=== PATIENT | female | born 1940 | race Caucasian/White ===

== ENCOUNTER 2022-08-30 12:46 | Inpatient (IN) ==
[2022-08-30] MEDS ORDERED: levETIRAcetam 1000MG IVPREMIX 1,000 MG/100 ML BAG IVPB ONE (12:53)
[2022-08-30] MEDS ORDERED: Iodixanol (CONTRAST) 320 MG/ML 100 ML SDV IV ONE (13:13)
[2022-08-30 13:18] LABS: ABS Basophils 0.1 10^3/uL (0.0-0.1); ABS Eosinophils 0.4 10^3/uL (0.0-0.5); ABS Lymphocytes 1.4 10^3/uL (1.0-4.8); ABS Monocytes 0.8 10^3/uL (0.0-0.9); ABS Neutrophils 6.2 10^3/uL (1.5-7.6); Eosinophil % 4.8 %; Hemoglobin 10.8 g/dL (11.5-14.3); Lymphocyte % 15.4 %; Mean Corpuscular Hemoglobin 31.2 pg (27-33); Mean Corpuscular Hgb Conc 33.9 g/dL (31-36); Mean Corpuscular Volume 92.1 fL (80-97); Mean Platelet Volume 9.3 fL (7.5-11.2); Platelet Count 362 10^3/uL (150-450); Red Blood Count 3.47 10^6/uL (3.63-4.92); Red Cell Distribution Width 14.3 % (12-17); White Blood Count 8.9 10^3/uL (3.8-11.8)
[2022-08-30 13:29] LABS: Activated Partial Thrombo Time 29.2 seconds (26.0-38.0); INR 1.15 (0.88-1.18)
[2022-08-30 14:01] LABS: Albumin 3.1 g/dL (3.2-5.2); Albumin/Globulin Ratio 1.1 (1-3); Calcium 9.3 mg/dL (8.6-10.3); Creatinine, Serum 0.76 mg/dL (0.51-0.95); Globulin 2.8 g/dL (2-4); HDL Cholesterol 53.1 mg/dL; Potassium 3.7 mmol/L (3.5-5.0); Total Bilirubin 0.4 mg/dL (0.2-1.0); Total Protein 5.9 g/dL (6.4-8.9); eGFR CKD-EPI 78.7 (>60)
[2022-08-30 17:34] LABS: Urine Appearance Clear; Urine Bilirubin Negative (Negative); Urine Blood Negative (Negative); Urine Color Yellow; Urine Glucose Negative (Negative); Urine Ketones Negative (Negative); Urine Nitrite Negative (Negative); Urine Protein 2+(100 mg/dL) (Negative); Urine Specific Gravity 1.011 (1.002-1.030); Urine Urobilinogen Negative (Negative)
[2022-08-30 17:44] LABS: Urine Bacteria Absent (Absent); Urine Red Blood Cell 2+(6-10/hpf) (Absent); Urine Squamous Epithelial Cell Present (Absent); Urine White Blood Cell 2+(11-20/hpf) (Absent)
[2022-08-30] MEDS ORDERED: Magnesium Hydroxide LIQ 30 ML UDC FEED TUBE PRN (19:21)
[2022-08-30] MEDS ORDERED: NS 0.45% 1000 ml BAG 1,000 ML IV SCH (20:00)
[2022-08-31 01:35] LABS: Calcium 9.2 mg/dL (8.6-10.3); Potassium 3.5 mmol/L (3.5-5.0)
[2022-08-31 01:41] LABS: Creatinine, Serum 0.62 mg/dL (0.51-0.95); eGFR CKD-EPI 89.4 (>60)
[2022-08-31] MEDS ORDERED: levETIRAcetam 500 MG IVPREMIX 500 MG/100 ML BAG IVPB SCH (02:00)
[2022-08-31] MEDS: levETIRAcetam 500 MG IVPREMIX 500 MG/100 ML BAG IVPB SCH ×2 (02:30→18:48)
[2022-08-31 05:51] LABS: ABS Basophils 0.1 10^3/uL (0.0-0.1); ABS Eosinophils 0.6 10^3/uL (0.0-0.5); ABS Lymphocytes 1.4 10^3/uL (1.0-4.8); ABS Monocytes 0.6 10^3/uL (0.0-0.9); ABS Neutrophils 4.1 10^3/uL (1.5-7.6); ABS Nucleated RBC 0.01 10^3/ul; Eosinophil % 8.6 %; Hematocrit 31.7 % (35-45); Hemoglobin 10.6 g/dL (11.5-14.3); Lymphocyte % 20.2 %; Mean Corpuscular Hemoglobin 30.7 pg (27-33); Mean Corpuscular Hgb Conc 33.4 g/dL (31-36); Mean Platelet Volume 9.6 fL (7.5-11.2); Nucleated Red Blood Cells % 0.2 /100 WBC (0.0-0.4); Platelet Count 324 10^3/uL (150-450); Red Blood Count 3.45 10^6/uL (3.63-4.92); Red Cell Distribution Width 14.3 % (12-17); White Blood Count 6.8 10^3/uL (3.8-11.8)
[2022-08-31 06:08] LABS: ALT 39 U/L (7-52); AST 23 U/L (13-39); Albumin/Globulin Ratio 1.1 (1-3); Alkaline Phosphatase 189 U/L (35-149); Anion Gap 9 mmol/L (2-16); Blood Urea Nitrogen 40 mg/dL (6-24); CO2 Carbon Dioxide 27 mmol/L (22-32); Calcium 9.3 mg/dL (8.6-10.3); Chloride 109 mmol/L (101-111); Creatinine, Serum 0.55 mg/dL (0.51-0.95); Globulin 2.8 g/dL (2-4); Glucose 98 mg/dL (70-100); Magnesium 1.7 mg/dL (1.9-2.7); Potassium 3.4 mmol/L (3.5-5.0); Sodium 145 mmol/L (135-145); Total Protein 5.8 g/dL (6.4-8.9)
[2022-08-31] MEDS ORDERED: Magnesium Sulfate 2 gm BAG 2 GM/50 ML BAG IVPB ONE (07:30)
[2022-08-31] MEDS ORDERED: Letrozole 2.5 MG TAB (NF) PO SCH (09:00)
[2022-08-31] MEDS: KCL 20 MEQ/100 ML IVPREMIX 20 MEQ/100 ML BAG IV SCH ×2 (10:34→19:14)
[2022-08-31] MEDS: CMCS: Letrozole 2.5 MG TAB (NF) PO SCH (10:51)
[2022-08-31 12:27] LABS: Folate > 20.00 ng/mL (5.90-24.80)
[2022-08-31 12:59] LABS: Vitamin B12 515 pg/mL (180-914)
[2022-08-31] MEDS ORDERED: Lidocaine 1% MPF 5 ML VIAL INJ ONE (14:57)
[2022-08-31] MEDS ORDERED: D5LR 1000 ml BAG 1,000 ML IV SCH (17:00)
[2022-08-31] MEDS ORDERED: Magnesium Hydroxide LIQ 30 ML UDC PO PRN (17:20)
[2022-08-31] MEDS ORDERED: Magnesium Hydroxide LIQ 30 ML UDC G TUBE PRN (18:19)
[2022-08-31] MEDS ORDERED: KCL 20 MEQ/100 ML IVPREMIX 20 MEQ/100 ML BAG ONE (18:36)
[2022-09-01] MEDS: levETIRAcetam 500 MG IVPREMIX 500 MG/100 ML BAG IVPB SCH ×2 (02:40→15:02)
[2022-09-01 06:09] LABS: ABS Basophils 0.1 10^3/uL (0.0-0.1); ABS Eosinophils 0.5 10^3/uL (0.0-0.5); ABS Lymphocytes 1.1 10^3/uL (1.0-4.8); ABS Monocytes 0.6 10^3/uL (0.0-0.9); ABS Neutrophils 3.8 10^3/uL (1.5-7.6); Eosinophil % 8.9 %; Hematocrit 28.3 % (35-45); Hemoglobin 9.6 g/dL (11.5-14.3); Lymphocyte % 18.1 %; Mean Corpuscular Hemoglobin 31.4 pg (27-33); Mean Corpuscular Hgb Conc 33.9 g/dL (31-36); Mean Corpuscular Volume 92.9 fL (80-97); Mean Platelet Volume 9.5 fL (7.5-11.2); Platelet Count 288 10^3/uL (150-450); Red Blood Count 3.05 10^6/uL (3.63-4.92); Red Cell Distribution Width 14.5 % (12-17); White Blood Count 6.2 10^3/uL (3.8-11.8)
[2022-09-01 06:35] LABS: Calcium 9.1 mg/dL (8.6-10.3); Creatinine, Serum 0.61 mg/dL (0.51-0.95); Magnesium 1.8 mg/dL (1.9-2.7); Potassium 3.4 mmol/L (3.5-5.0); eGFR CKD-EPI 89.8 (>60)
[2022-09-01] MEDS ORDERED: Magnesium Sulfate IV 1GM/100ML 1 GM/100 ML BAG IV ONE (07:15)
[2022-09-01 08:27] LABS: Ferritin 276.9 ng/mL (11-307)
[2022-09-01] MEDS: KCL 20 MEQ/100 ML IVPREMIX 20 MEQ/100 ML BAG IV SCH ×2 (10:06→15:39)
[2022-09-01] MEDS: CMCS: Letrozole 2.5 MG TAB (NF) PO SCH (10:35)
[2022-09-01] MEDS ORDERED: fentaNYL 100 mcg/2 ml 50 MCG/ML VIAL ONE (14:17)
[2022-09-01] MEDS ORDERED: Ferric Gluconate IV 125 MG in NS 0.9% 100 ml BAG 100 ML IVPB ONE (17:00)
[2022-09-02] MEDS: levETIRAcetam 500 MG IVPREMIX 500 MG/100 ML BAG IVPB SCH ×2 (02:24→15:08)
[2022-09-02] MEDS: CMCS: Letrozole 2.5 MG TAB (NF) PO SCH (10:24)
[2022-09-02 10:53] LABS: Calcium 9.1 mg/dL (8.6-10.3); Magnesium 1.7 mg/dL (1.9-2.7); Potassium 3.5 mmol/L (3.5-5.0)
[2022-09-02 10:59] LABS: Creatinine, Serum 0.65 mg/dL (0.51-0.95); eGFR CKD-EPI 88.4 (>60)
[2022-09-02] MEDS ORDERED: Magnesium Sulfate 2 gm BAG 2 GM/50 ML BAG IVPB ONE (11:09)
[2022-09-02] MEDS ORDERED: D5W 1/2 NS 40 Meq KCL 1000 ml 1,000 ML IV SCH (17:00)
[2022-09-03] MEDS: levETIRAcetam 500 MG IVPREMIX 500 MG/100 ML BAG IVPB SCH ×2 (02:30→16:22)
[2022-09-03 06:34] LABS: Calcium 8.7 mg/dL (8.6-10.3); Creatinine, Serum 0.68 mg/dL (0.51-0.95); Magnesium 1.9 mg/dL (1.9-2.7); Potassium 4.2 mmol/L (3.5-5.0); eGFR CKD-EPI 87.4 (>60)
[2022-09-03] MEDS: CMCS: Letrozole 2.5 MG TAB (NF) PO SCH (09:14)
[2022-09-04] MEDS: levETIRAcetam 500 MG IVPREMIX 500 MG/100 ML BAG IVPB SCH ×2 (03:17→13:57)
[2022-09-04 09:19] LABS: Blood Urea Nitrogen 34 mg/dL (6-24); CO2 Carbon Dioxide 22 mmol/L (22-32); Calcium 9.1 mg/dL (8.6-10.3); Chloride 111 mmol/L (101-111); Glucose 118 mg/dL (70-100); Magnesium 1.6 mg/dL (1.9-2.7); Sodium 141 mmol/L (135-145); eGFR CKD-EPI 90.1 (>60)
[2022-09-04 09:22] LABS: Anion Gap 8 mmol/L (2-16)
[2022-09-04] MEDS ORDERED: Magnesium Sulfate IV 3 GM in NS 0.9% 100 ml BAG 100 ML IVPB ONE (09:45)
[2022-09-04] MEDS: CMCS: Letrozole 2.5 MG TAB (NF) PO SCH (10:30)
[2022-09-05] MEDS: levETIRAcetam 500 MG IVPREMIX 500 MG/100 ML BAG IVPB SCH ×2 (02:39→13:47)
[2022-09-05 07:03] LABS: Calcium 8.9 mg/dL (8.6-10.3); Creatinine, Serum 0.54 mg/dL (0.51-0.95); Magnesium 1.6 mg/dL (1.9-2.7); Potassium 3.3 mmol/L (3.5-5.0); eGFR CKD-EPI 92.4 (>60)
[2022-09-05] MEDS ORDERED: Magnesium Sulfate 2 gm BAG 2 GM/50 ML BAG IVPB ONE (07:41)
[2022-09-05] MEDS: CMCS: Letrozole 2.5 MG TAB (NF) PO SCH (09:59)
[2022-09-05] MEDS: KCL 20 MEQ/100 ML IVPREMIX 20 MEQ/100 ML BAG IV SCH ×2 (09:59→13:47)
[2022-09-05] MEDS: Magnesium Hydroxide LIQ 30 ML UDC G TUBE SCH ×2 (13:47→21:30)
[2022-09-06] MEDS: levETIRAcetam 500 MG IVPREMIX 500 MG/100 ML BAG IVPB SCH (01:38)
[2022-09-06] MEDS: CMCS: Letrozole 2.5 MG TAB (NF) PO SCH (08:23)
[2022-09-06 12:30] VITALS: BP 112/54
[2022-09-06 12:36] LABS: Rapid COVID-19 Molecular Undetected (Undetected)
== END 2022-09-06 13:07 | DRG 71 ==
LOC: EDHOLD 12:46 → ED 12:46 → SUATTDRO 17:44 → MEDTELE 19:41 → SUATTDRO 08-31 10:00
PROVIDERS: ADMIT Internal Medicine; ATTEND Internal Medicine

== ENCOUNTER 2022-10-27 22:04 | Observation (INO) ==
[2022-10-27] MEDS ORDERED: NS 0.9% 1000 ml BAG 1,000 ML IV ONE (23:40)
[2022-10-28 01:20] LABS: ABS Basophils 0.1 10^3/uL (0.0-0.1); ABS Eosinophils 0.1 10^3/uL (0.0-0.5); ABS Lymphocytes 1.2 10^3/uL (1.0-4.8); ABS Monocytes 0.6 10^3/uL (0.0-0.9); ABS Nucleated RBC 0.01 10^3/ul; Eosinophil % 2.5 %; Hematocrit 30.9 % (35-45); Hemoglobin 10.6 g/dL (11.5-14.3); Lymphocyte % 19.7 %; Mean Corpuscular Hemoglobin 31.2 pg (27-33); Mean Corpuscular Hgb Conc 34.3 g/dL (31-36); Mean Corpuscular Volume 90.8 fL (80-97); Nucleated Red Blood Cells % 0.2 /100 WBC (0.0-0.4); Platelet Count 232 10^3/uL (150-450); Red Cell Distribution Width 15.3 % (12-17); White Blood Count 5.9 10^3/uL (3.8-11.8)
[2022-10-28 02:27] LABS: INR 1.18 (0.88-1.18)
[2022-10-28 02:32] LABS: TSH Ultra Thyroid Stim Horm 1.42 mcIU/mL (0.34-5.60)
[2022-10-28 03:37] LABS: Albumin 3.2 g/dL (3.2-5.2); Magnesium 1.4 mg/dL (1.9-2.7); Potassium 3.8 mmol/L (3.5-5.0); Total Bilirubin 0.4 mg/dL (0.2-1.0)
[2022-10-28 03:43] LABS: Albumin/Globulin Ratio 1.2 (1-3); Creatinine, Serum 0.57 mg/dL (0.51-0.95); Globulin 2.7 g/dL (2-4); Total Protein 5.9 g/dL (6.4-8.9); eGFR CKD-EPI 91.2 (>60)
[2022-10-28] MEDS ORDERED: Iohexol 350 (CONTRAST) 500 ML MDV IV ONE (04:00)
[2022-10-28 04:01] LABS: Urine Appearance Clear; Urine Bilirubin Negative (Negative); Urine Blood Negative (Negative); Urine Color Yellow; Urine Glucose Negative (Negative); Urine Ketones 1+ (Negative); Urine Nitrite Negative (Negative); Urine Protein Negative (Negative); Urine Specific Gravity 1.011 (1.002-1.030); Urine Urobilinogen Negative (Negative)
[2022-10-28] MEDS ORDERED: NS 0.9% 1000 ml BAG 1,000 ML IV ONE (05:25)
[2022-10-28] MEDS ORDERED: Magnesium Sulfate IV 3 GM in NS 0.9% 100 ml BAG 100 ML IVPB ONE (07:25)
[2022-10-28] MEDS ORDERED: Senna TAB 8.6 mg TAB PO PRN (08:49)
[2022-10-28] MEDS ORDERED: Al Hydrox/Mg Hydrox/Simet LIQ 30 ML UDC PO PRN (08:49)
[2022-10-28] MEDS ORDERED: Polyethylene Glycol 3350 17 GM PACKET PO PRN (08:49)
[2022-10-28] MEDS ORDERED: levETIRAcetam LIQ 500 MG/5 ML UDC PO SCH (09:00)
[2022-10-28] MEDS ORDERED: levETIRAcetam 500 MG IVPREMIX 500 MG/100 ML BAG IV SCH (11:30)
[2022-10-28] MEDS: CMC:Letrozole 2.5 MG TAB (NF) PO SCH (14:14)
[2022-10-28] MEDS ORDERED: Valproic Acid IV 1,000 MG in NS 0.9% 100 ml BAG 100 ML IVPB ONE (16:46)
[2022-10-28] MEDS ORDERED: Senna TAB 8.6 mg TAB PEG TUBE PRN (20:34)
[2022-10-29 06:58] LABS: ABS Eosinophils 0.2 10^3/uL (0.0-0.5); ABS Lymphocytes 1.1 10^3/uL (1.0-4.8); ABS Monocytes 0.5 10^3/uL (0.0-0.9); ABS Neutrophils 2.1 10^3/uL (1.5-7.6); ABS Nucleated RBC 0.01 10^3/ul; Eosinophil % 4.9 %; Hematocrit 31.9 % (35-45); Hemoglobin 10.7 g/dL (11.5-14.3); Lymphocyte % 27.8 %; Mean Corpuscular Hemoglobin 30.4 pg (27-33); Mean Corpuscular Hgb Conc 33.6 g/dL (31-36); Mean Corpuscular Volume 90.4 fL (80-97); Mean Platelet Volume 8.8 fL (7.5-11.2); Nucleated Red Blood Cells % 0.2 /100 WBC (0.0-0.4); Platelet Count 196 10^3/uL (150-450); Red Blood Count 3.53 10^6/uL (3.63-4.92); White Blood Count 3.9 10^3/uL (3.8-11.8)
[2022-10-29 07:13] LABS: Calcium 8.6 mg/dL (8.6-10.3); Creatinine, Serum 0.38 mg/dL (0.51-0.95); Magnesium 1.5 mg/dL (1.9-2.7); Potassium 3.1 mmol/L (3.5-5.0); eGFR CKD-EPI 100.6 (>60)
[2022-10-29] MEDS ORDERED: Magnesium Sulf 4 GM/100 ML IV 4,000 MG/100 ML BAG IVPB ONE (07:14)
[2022-10-29] MEDS: Potassium Chlor 20 meq TAB.ER PO SCH ×2 (11:01→13:27)
[2022-10-29] MEDS ORDERED: Senna TAB 8.6 mg TAB PO PRN (11:01)
[2022-10-29] MEDS: CMC:Letrozole 2.5 MG TAB (NF) PO SCH (11:13)
[2022-10-29 12:23] VITALS: BP 113/58
[2022-10-29] MEDS ORDERED: Nystatin TOP POWDER 15 GM BTL TOPICAL SCH (13:00)
== END 2022-10-29 13:30 ==
LOC: ED 22:04 → EDHOLD 22:04 → SUATTDRO 10-28 07:22 → MEDTELE 10-28 14:14
PROVIDERS: ADMIT Internal Medicine; ATTEND Internal Medicine